=== PATIENT | male | born 2000 | race Two or more races ===

== ENCOUNTER 2019-11-20 17:14 | Emergency (ER) | payer OTHER ==
[~2019-11-20] VITALS: Ht 172.7 cm; Wt 53.5 kg
[2019-11-20 17:25] VITALS: BP 111/60
[2019-11-20] MEDS ORDERED: predniSONE 20 MG TABLET ONE (17:46)
[2019-11-20] MEDS ORDERED: predniSONE 50 MG TABLET PO ONE (18:00)
--- NOTE | 2019-11-20 18:11 | NUR ---
Patient discharged to home in stable condition. Written and verbal after care instructions given. Patient verbalizes understanding of instruction.
== END 2019-11-20 18:12 | disposition home or self-care (01) ==
LOC: ER 17:16
DX: G51.0 Bell's palsy (principal)
CPT/HCPCS: 99283; J7512

== ENCOUNTER 2019-11-29 13:47 | Emergency (ER) | payer OTHER ==
[~2019-11-29] VITALS: Ht 167.6 cm; Wt 65.8 kg
[2019-11-29 14:01] VITALS: BP 11/67
== END 2019-11-29 14:22 | disposition home or self-care (01) ==
LOC: ER 13:47
DX: G51.0 Bell's palsy (principal)